=== PATIENT | female | born 1985 | race Hispanic/Latino ===

== ENCOUNTER 2018-12-11 11:16 | Emergency (ER) | payer OTHER, SELFPAY ==
[2018-12-11 14:13] LABS: Urine Bacteria <20 /HPF (<20); Urine RBC NONE SEEN /HPF (NONE SEEN)
[2018-12-11] MEDS ORDERED: NA CHLORIDE 0.9% 1,000 ML ONE (14:13)
[2018-12-11 14:14] LABS: Urine Culture Reflex Order NOT NEEDED
[2018-12-11 14:18] LABS: Urine Blood NEGATIVE (NEG); Urine Glucose NEGATIVE (NEG); Urine Protein NEGATIVE (NEG); Urine Specific Gravity <1.005 (1.005-1.030)
[2018-12-11 14:38] LABS: Absolute Lymphocytes (CBC) 2.7 K/uL (0.7-4.9); Absolute Monocytes 0.5 K/uL (0.1-1.3); Basophils % 0.6 % (0-1.3); Eosinophils % 6.6 % (0-4.4); Hematocrit 39.5 % (36.0-45.0); Lymphocytes % 27.3 % (15.3-44.8); MPV 8.5 fL (7.6-11.3); Monocytes % 4.7 % (3.3-12.3); RBC Red Blood Cell Count 4.38 M/uL (3.86-4.86)
--- NOTE | 2018-12-11 14:42 | RAD REPORT ---
EXAM DESCRIPTION: US - Abdomen Exam Limited - 12/11/2018 2:30 pm CLINICAL HISTORY: ABD PAIN COMPARISON: No comparisons FINDINGS: The gallbladder demonstrates multiple shadowing gallstones. No pericholecystic fluid or ga llbladder wall thickening. The common bile duct is normal measuring 2 mm. The liver demonstrates no findings of intrahepatic biliary dilatation. IMPRESSION: Cholelithiasis.
[2018-12-11 14:49] LABS: ALT/SGPT 29 U/L (12-78); AST/SGOT 13 U/L (15-37); Alkaline Phosphatase 50 U/L (45-117); BUN Blood Urea Nitrogen 12 mg/dL (7-18); Bicarbonate 29 mmol/L (21-32); Bilirubin Direct < 0.1 mg/dL (0-0.2); Bilirubin Total 0.3 mg/dL (0.2-1.0); Glucose Level 80 mg/dL (74-106); Lipase 250 U/L (73-393); Potassium 3.7 mmol/L (3.5-5.1); Sodium Level 140 mmol/L (136-145)
--- NOTE | 2018-12-11 16:41 | ER ---
Nurse's Notes [facility] Name: Vero Torres Age: 33 yrs Sex: Female : 1985 Arrival Date: 12/11/2018 Time: 11:22 Bed 24 Private MD: None, None Diagnosis: Eosinophilia;Generalized abdominal pain Presentation: 12/11 11:27 Presenting complaint: Patient states: upper abd pain and RLQ pain that radiates to aa5 right flank that began 2-3 months ago. Pt states "I need my gallbladder taken out but I haven't been able to do it and the pain got worse 3 days ago". pt reports nausea, denies vomiting. Transition of care: patient was not received from another setting of care. Onset of symptoms was September 2018. Risk Assessment: Do you want to hurt yourself or someone else? Patient reports no desire to harm self or others. Initial Sepsis Screen: Does the patient meet any 2 criteria? No. Patient's initial sepsis screen is negative. Does the patient have a suspected source of infection? No. Patient's initial sepsis screen is negative. Care prior to arrival: None. 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 - Social history:: Smoking status: Patient uses tobacco products, 3 cigarettes a day . - Ebola Screening: : No symptoms or risks identified at this time. Screenin:00 Abuse screen: Denies threats or abuse. Denies injuries from another. Nutritional ca1 screening: No deficits noted. Tuberculosis screening: No symptoms or risk factors identified. Fall Risk None identified. Assessment: 13:00 General: Appears in no apparent distress. comfortable, Behavior is calm, cooperative, ca1 appropriate for age. Pain: Complains of pain in abdomen Pain radiates to back Pain currently is 9 out of 10 on a pain scale. Pain began months ago but worst today Is episodic. Neuro: Level of Consciousness is awake, alert, obeys commands, Oriented to person, place, time, situation. Cardiovascular: Heart tones S1 S2 present Capillary refill < 3 seconds Patient's skin is warm and dry. Respiratory: Airway is patent Respiratory effort is even, unlabored, Respiratory pattern is regular, symmetrical. GI: Abdomen is flat, non-distended, Bowel sounds present X 4 quads. Abd is soft X 4 quads Abdomen is tender to palpation in right upper quadrant and left upper quadrant Reports constipation, nausea, vomiting. : No deficits noted. No signs and/or symptoms were reported regarding the genitourinary system. EENT: No deficits noted. No signs and/or symptoms were reported regarding the EENT system. Derm: Skin is intact, is healthy with good turgor, Skin is pink, warm \\T\\ dry. Musculoskeletal: Circulation, motion, and sensation intact. Capillary refill < 3 seconds. 14:00 Reassessment: Patient appears in no apparent distress at this time. Patient and/or ca1 family updated on plan of care and expected duration. Pain level reassessed. Patient is alert, oriented x 3, equal unlabored respirations, skin warm/dry/pink. 14:18 Reassessment: Pt to US. ca1 14:33 Reassessment: Pt back from US. ca1 15:16 Reassessment: Patient appears in no apparent distress at this time. Patient and/or ca1 family updated on plan of care and expected duration. Pain level reassessed. Patient is alert, oriented x 3, equal unlabored respirations, skin warm/dry/pink. 16:03 Reassessment: Patient appears in no apparent distress at this time. Patient and/or ca1 family updated on plan of care and expected duration. Pain level reassessed. Patient is alert, oriented x 3, equal unlabored respirations, skin warm/dry/pink. 17:00 Reassessment: Patient appears in no apparent distress at this time. Patient is alert, ca1 oriented x 3, equal unlabored respirations, skin warm/dry/pink. Vital Signs: 11:29 BP 106 / 69; Pulse 72; Resp 16 S; Temp 97.7(TE); Pulse Ox 99% on R/A; Weight 81.65 kg aa5 (R); Height 5 ft. 3 in. (160.02 cm) (R); Pain 10/10; 13:00 BP 92 / 63; Pulse 63; Resp 19; Pulse Ox 99% on R/A; Pain 9/10; ca1 14:00 BP 96 / 77; Pulse 57; Resp 19; Pulse Ox 100% on R/A; ca1 15:00 BP 103 / 65; Pulse 57; Resp 19; Pulse Ox 100% on R/A; ca1 16:03 BP 98 / 55; Pulse 63; Resp 18; Pulse Ox 100% on R/A; ca1 17:00 BP 93 / 72; Pulse 60; Resp 19; Pulse Ox 100% on R/A; ca1 11:29 Body Mass Index 31.89 (81.65 kg, 160.02 cm) aa5 ED Course: 11:22 Patient arrived in ED. mr 11:22 None, None is Private Physician. mr 11:27 Arm band placed on. aa5 11:27 Patient placed in waiting room, Patient notified of wait time. aa5 11:29 Triage completed. aa5 11:50 Felicia Payan FNP-C [facility]. snw 11:50 Sudhakar Joe MD is Attending Physician. snw 12:52 Ernestina Talbot, VERNON is Primary Nurse. ca1 13:00 Patient has correct armband on for positive identification. Placed in gown. Bed in low ca1 position. Call light in reach. Side rails up X 1. Pulse ox on. NIBP on. Warm blanket given. 14:15 No provider procedures requiring assistance completed. Inserted saline lock: 20 gauge ca1 in left antecubital area, using aseptic technique. Blood collected. 14:30 US Abdomen Limited In Process Unspecified. EDMS 17:14 IV discontinued, intact, bleeding controlled, No redness/swelling at site. Pressure ca1 dressing applied. Administered Medications: 06:58 Drug: Bentyl 20 mg Route: PO; ca1 17:13 Follow up: Response: Medication administered at discharge. ca1 14:15 Drug: NS 0.9% 1000 ml Route: IV; Rate: 75 ml/hr; Site: right antecubital; ca1 17:12 Follow up: IV Status: Order to discontinue infusion ca1 Outcome: 16:41 Discharge ordered by . snw 17:14 Discharged to home ambulatory. ca1 17:14 Condition: stable 17:14 Discharge instructions given to patient, Instructed on discharge instructions, follow up and referral plans. medication usage, Demonstrated understanding of instructions, follow-up care, medications, Prescriptions given X 1. 17:15 Patient left the ED. ca1 Signatures: Dispatcher [employer] EDMS Felicia Payan, HUMAN RESOURCES REPRESENTATIVE-C HUMAN RESOURCES REPRESENTATIVE-Csnw Shre Kait mr Gregg, Leesa, RN RN aa5 Ernestina Talbot RN RN ca1
--- NOTE | 2018-12-11 16:41 | EDPHYS ---
Physician Documentation [facility] Name: Vero Torres Age: 33 yrs Sex: Female : 1985 Arrival Date: 12/11/2018 Time: 11:22 Bed 24 Private MD: None, None ED Physician Sudhakar Joe HPI: 12/11 14:44 This 33 yrs old Female presents to ER via Ambulatory with complaints of snw Abdominal Pain, Back Pain. 14:44 The patient presents with abdominal pain in the upper abdomen, in the lower abdomen, snw with radiation around to right lower/mid back. Onset: The symptoms/episode began/occurred gradually, 3 day(s) ago, and became worse and became persistent. The symptoms radiate to the right flank. Associated signs and symptoms: Pertinent positives: nausea, Pertinent negatives: fever. The symptoms are described as achy. Modifying factors: The symptoms are alleviated by nothing, the symptoms are aggravated by movement, pressure. Severity of pain: At its worst the pain was moderate in the emergency department the pain is unchanged. It is unknown whether or not the patient has had similar symptoms in the past. It is unknown whether or not the patient has recently seen a physician. pt states she usually goes to [place] for healthcare, has been told her gallbladder needs removing. 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 - Social history:: Smoking status: Patient uses tobacco products, 3 cigarettes a day . - Ebola Screening: : No symptoms or risks identified at this time. ROS: 14:43 Constitutional: Negative for fever, chills, and weight loss, Eyes: Negative for injury, snw pain, redness, and discharge, ENT: Negative for injury, pain, and discharge, Neck: Negative for injury, pain, and swelling, Cardiovascular: Negative for chest pain, palpitations, and edema, Respiratory: Negative for shortness of breath, cough, wheezing, and pleuritic chest pain, : Negative for injury, bleeding, discharge, and swelling, MS/Extremity: Negative for injury and deformity, Skin: Negative for injury, rash, and discoloration, Neuro: Negative for headache, weakness, numbness, tingling, and seizure. 14:43 Abdomen/GI: Positive for abdominal pain, nausea. 14:43 Back: Positive for flank pain, on the right, radiated pain. Exam: 14:42 Constitutional: This is a well developed, well nourished patient who is awake, alert, snw and in no acute distress. Head/Face: Normocephalic, atraumatic. Eyes: Pupils equal round and reactive to light, extra-ocular motions intact. Lids and lashes normal. Conjunctiva and sclera are non-icteric and not injected. Cornea within normal limits. Periorbital areas with no swelling, redness, or edema. ENT: Nares patent. No nasal discharge, no septal abnormalities noted. Tympanic membranes are normal and external auditory canals are clear. Oropharynx with no redness, swelling, or masses, exudates, or evidence of obstruction, uvula midline. Mucous membranes moist. Neck: Trachea midline, no thyromegaly or masses palpated, and no cervical lymphadenopathy. Supple, full range of motion without nuchal rigidity, or vertebral point tenderness. No Meningismus. Chest/axilla: Normal chest wall appearance and motion. Nontender with no deformity. No lesions are appreciated. Cardiovascular: Regular rate and rhythm with a normal S1 and S2. No gallops, murmurs, or rubs. Normal PMI, no JVD. No pulse deficits. Respiratory: Lungs have equal breath sounds bilaterally, clear to auscultation and percussion. No rales, rhonchi or wheezes noted. No increased work of breathing, no retractions or nasal flaring. Back: No spinal tenderness. No costovertebral tenderness. Full range of motion. Skin: Warm, dry with normal turgor. Normal color with no rashes, no lesions, and no evidence of cellulitis. MS/ Extremity: Pulses equal, no cyanosis. Neurovascular intact. Full, normal range of motion. Neuro: Awake and alert, GCS 15, oriented to person, place, time, and situation. Cranial nerves II-XII grossly intact. Motor strength 5/5 in all extremities. Sensory grossly intact. Cerebellar exam normal. Normal gait. Psych: Awake, alert, with orientation to person, place and time. Behavior, mood, and affect are within normal limits. 14:42 Abdomen/GI: Inspection: obese Bowel sounds: normal, Palpation: moderate abdominal tenderness, in the umbilical area and suprapubic area. Vital Signs: 11:29 BP 106 / 69; Pulse 72; Resp 16 S; Temp 97.7(TE); Pulse Ox 99% on R/A; Weight 81.65 kg aa5 (R); Height 5 ft. 3 in. (160.02 cm) (R); Pain 10/10; 13:00 BP 92 / 63; Pulse 63; Resp 19; Pulse Ox 99% on R/A; Pain 9/10; ca1 14:00 BP 96 / 77; Pulse 57; Resp 19; Pulse Ox 100% on R/A; ca1 15:00 BP 103 / 65; Pulse 57; Resp 19; Pulse Ox 100% on R/A; ca1 16:03 BP 98 / 55; Pulse 63; Resp 18; Pulse Ox 100% on R/A; ca1 17:00 BP 93 / 72; Pulse 60; Resp 19; Pulse Ox 100% on R/A; ca1 11:29 Body Mass Index 31.89 (81.65 kg, 160.02 cm) aa5 MDM: 13:45 Patient medically screened. snw 16:42 Data reviewed: vital signs, nurses notes. Data interpreted: Pulse oximetry: on room air snw is 100 %. Interpretation: normal. Counseling: I had a detailed discussion with the patient and/or guardian regarding: the historical points, exam findings, and any diagnostic results supporting the discharge/admit diagnosis, lab results, the need for outpatient follow up, to return to the emergency department if symptoms worsen or persist or if there are any questions or concerns that arise at home. Special discussion: Based on the history and exam findings, there is no indication for further emergent testing or inpatient evaluation. I discussed with the patient/guardian the need to see the cracking still operator for further evaluation of the symptoms. I discussed with the patient/guardian the need to see the primary care provider for further evaluation of the symptoms. ED course: spoke to pt re: parasites and eosinophilia, recent [place] travel. F/u and return prn fever, diarrhea, blood in stools. 12/11 11:49 Order name: Urine Culture snw 12/11 11:49 Order name: Urine Microscopic Only; Complete Time: 14:16 snw 12/11 13:43 Order name: Urine Dipstick--Ancillary (enter results); Complete Time: 14:20 bd 12/11 13:54 Order name: Basic Metabolic Panel; Complete Time: 14:55 snw 12/11 13:54 Order name: CBC with Diff; Complete Time: 14:58 snw 12/11 11:49 Order name: Urine Test (obtain specimen); Complete Time: 12:53 snw 12/11 13:54 Order name: Creatinine for Radiology; Complete Time: 14:55 snw 12/11 13:54 Order name: Hepatic Function; Complete Time: 14:55 snw 12/11 13:54 Order name: Lipase; Complete Time: 14:55 snw 12/11 14:08 Order name: US Abdomen Limited; Complete Time: 14:45 snw 12/11 14:18 Order name: Test, Serum bd 12/11 11:49 Order name: Urine Dipstick-Ancillary (obtain specimen); Complete Time: 12:53 snw 12/11 13:54 Order name: IV Saline Lock; Complete Time: 14:19 snw 12/11 13:54 Order name: Labs collected and sent; Complete Time: 14:19 snw Administered Medications: 06:58 Drug: Bentyl 20 mg Route: PO; ca1 17:13 Follow up: Response: Medication administered at discharge. ca1 14:15 Drug: NS 0.9% 1000 ml Route: IV; Rate: 75 ml/hr; Site: right antecubital; ca1 17:12 Follow up: IV Status: Order to discontinue infusion ca1 Disposition: 17:20 Co-signature as Attending Physician, Sudhakar Joe MD. rn Disposition: 12/11/18 16:41 Discharged to Home. Impression: Eosinophilia, Generalized abdominal pain. - Condition is Stable. - Discharge Instructions: Abdominal Pain, Adult. - Prescriptions for Bentyl 20 mg Oral Tablet - take 1 tablet by ORAL route every 6 hours As needed; 20 tablet. - Work release form, Medication Reconciliation Form, Thank You Letter, Antibiotic Education, Prescription Opioid Use form. - Follow up: Emergency Department; When: As needed; Reason: Worsening of condition. Follow up: Private Physician; When: 2 - 3 days; Reason: Recheck today's complaints, Continuance of care, Re-evaluation by your physician. Signatures: Dispatcher [facility] EDFelicia Henriquez FNP-C RETOUCHER-Csnw Sudhakar Joe MD MD rn Leesa Escobedo, RN RN aa5 Ernestina Talbot RN RN ca1 Corrections: (The following items were deleted from the chart) 14:19 13:44 URINE --ANCILLARY+UC.LAB.BRZ ordered. EDMS EDMS 17:15 16:41 12/11/2018 16:41 Discharged to Home. Impression: Eosinophilia; Generalized ca1 abdominal pain. Condition is Stable. Forms are Medication Reconciliation Form, Thank You Letter, Antibiotic Education, Prescription Opioid Use. Follow up: Emergency Department; When: As needed; Reason: Worsening of condition. Follow up: Private Physician; When: 2 - 3 days; Reason: Recheck today's complaints, Continuance of care, Re-evaluation by your physician. snw
[2018-12-11] MEDS ORDERED: DICYCLOMINE HCL 10 MG CAP ONE (17:19)
== END 2018-12-11 17:15 | disposition home or self-care (01) ==
LOC: ER 11:16
DX: D72.1 Eosinophilia (principal); R10.10 Upper abdominal pain, unspecified; R10.30 Lower abdominal pain, unspecified; F17.210 Nicotine dependence, cigarettes, uncomplicated
CPT/HCPCS: 36415; 76705; 80048; 80076; 81003; 81015; 83690; 84703; 85025; 87086; 87088; 96360; 96361; 99284; J7030

== ENCOUNTER 2019-04-06 19:23 | Emergency (ER) | payer OTHER ==
[2019-04-06 20:04] LABS: Absolute Lymphocytes (CBC) 3.2 K/uL (0.7-4.9); Basophils % 0.6 % (0-1.3); Hematocrit 39.5 % (36.0-45.0); MPV 8.3 fL (7.6-11.3); RBC Red Blood Cell Count 4.35 M/uL (3.86-4.86)
[2019-04-06 20:24] LABS: Potassium 3.6 mmol/L (3.5-5.1)
[2019-04-06 20:56] LABS: Urine Specific Gravity 1.015 (1.005-1.030)
[2019-04-06 20:56] LABS: Urine Glucose NEGATIVE (NEG); Urine Specific Gravity 1.015 (1.005-1.030)
[2019-04-06 20:57] LABS: Urine Blood 3+ (NEG); Urine Protein NEGATIVE (NEG)
--- NOTE | 2019-04-06 21:14 | ER ---
Nurse's Notes [facility] Name: Vero Torres Age: 33 yrs Sex: Female : 1985 Arrival Date: 04/06/2019 Time: 19:26 Bed 30 Private MD: Diagnosis: Threatened Presentation: 04/06 19:33 Presenting complaint: Patient states: right lower abd pain intermittent X1 week. pt c/o ak1 dark brown blood vaginal bleeding X2 weeks with bright red blood today. pt seen in [place] for . Transition of care: patient was not received from another setting of care. Onset of symptoms is unknown. Risk Assessment: Do you want to hurt yourself or someone else? Patient reports no desire to harm self or others. Initial Sepsis Screen: Does the patient meet any 2 criteria? No. Patient's initial sepsis screen is negative. Does the patient have a suspected source of infection? No. Patient's initial sepsis screen is negative. Care prior to arrival: None. 19:33 Method Of Arrival: Ambulatory ak1 19:33 Acuity: RED 3 ak1 Triage Assessment: 19:34 General: Appears in no apparent distress. Behavior is calm, cooperative. 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 - Social history:: Smoking status: Patient/guardian denies using tobacco. - Ebola Screening: : No symptoms or risks identified at this time. Screenin:45 Abuse screen: Denies threats or abuse. Denies injuries from another. Nutritional ca1 screening: No deficits noted. Tuberculosis screening: No symptoms or risk factors identified. Fall Risk IV access (20 points). Assessment: 19:45 General: Appears in no apparent distress. comfortable, Behavior is calm, cooperative, ca1 appropriate for age. Pain: Complains of pain in right lower quadrant Pain radiates to right low back Pain currently is 8 out of 10 on a pain scale. Quality of pain is described as sharp, Pain began 2 weeks ago but comes about 2 days on a week. But today has been worse with bright red vaginal bleeding. Neuro: Level of Consciousness is awake, alert, obeys commands, Oriented to person, place, time, situation, Appropriate for age. Cardiovascular: Heart tones S1 S2 present Capillary refill < 3 seconds Patient's skin is warm and dry. Respiratory: Airway is patent Respiratory effort is even, unlabored, Respiratory pattern is regular, symmetrical, Breath sounds are clear bilaterally. GI: Abdomen is round non-distended, Bowel sounds present X 4 quads. Abd is soft X 4 quads Abdomen is tender to palpation in right lower quadrant Reports nausea. : Urine is clear, Reports vaginal bleeding that is bright red, light flow, since 2 days ago. But first bright red blood vaginal bleed was on Sunday but went away. 2 days ago started to come back. 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 EENT: No deficits noted. No signs and/or symptoms were reported regarding the EENT system. Derm: Skin is intact, is healthy with good turgor, Skin is pink, warm \T\ dry. Musculoskeletal: Circulation, motion, and sensation intact. Capillary refill < 3 seconds, Range of motion: intact in all extremities. 21:08 Reassessment: Patient appears in no apparent distress at this time. Patient and/or ca1 family updated on plan of care and expected duration. Pain level reassessed. Patient is alert, oriented x 3, equal unlabored respirations, skin warm/dry/pink. Vital Signs: 19:32 BP 114 / 65; Pulse 87; Resp 16; Temp 98.1; Pulse Ox 99% on R/A; Weight 88.9 kg (R); ak1 Height 5 ft. 3 in. (160.02 cm); Pain 6/10; 20:13 BP 99 / 62; Pulse 81; Resp 16 S; Pulse Ox 100% on R/A; ca1 21:08 BP 99 / 68; Pulse 77; Resp 17 S; Pulse Ox 99% on R/A; ca1 19:32 Body Mass Index 34.72 (88.90 kg, 160.02 cm) ak1 ED Course: 19:26 Patient arrived in ED. es 19:32 Arm band placed on Patient placed in an exam room, on a stretcher, Patient notified of ak1 wait time. 19:34 Triage completed. ak1 19:37 Srinivas Red PA is PHCP. [facility] 19:37 Cordell Arreguin MD is Attending Physician. [facility] 19:45 Patient has correct armband on for positive identification. Placed in gown. Bed in low ca1 position. Call light in reach. Side rails up X 1. Pulse ox on. NIBP on. Warm blanket given. 19:45 Inserted saline lock: 20 gauge in right antecubital area, using aseptic technique. ca1 Blood collected. 19:56 Ernestina Talbot, RN is Primary Nurse. ca1 20:32 Transvaginal OB In Process Unspecified. EDMS 21:13 Josue Matamoros MD is Referral Physician. [facility] 21:22 No provider procedures requiring assistance completed. IV discontinued, intact, la1 bleeding controlled, No redness/swelling at site. Pressure dressing applied. Administered Medications: No medications were administered Outcome: 21:13 Discharge ordered by . [facility] 21:22 Discharged to home ambulatory. la1 21:22 Condition: stable 21:22 Discharge instructions given to patient, Instructed on discharge instructions, follow up and referral plans. medication usage, Demonstrated understanding of instructions, follow-up care. 21:22 Patient left the ED. la1 Signatures: Dispatcher [employer] EDKS Srinivas Red PA PA jmm Salyer, Edna es Attema, Lee, RN RN la1 Puja Puri RN RN ak1 Ernestina Talbot, VERNON RN ca1 Corrections: (The following items were deleted from the chart) 20:04 19:45 : Urine is clear, ca1 ca1
--- NOTE | 2019-04-06 21:15 | EDPHYS ---
Physician Documentation [facility] Name: Vero Torres Age: 33 yrs Sex: Female : 1985 Arrival Date: 04/06/2019 Time: 19:26 Bed 30 Private MD: ED Physician Cordell Arreguin HPI: 04/06 19:41 This 33 yrs old Female presents to ER via Ambulatory with complaints of jmm Vaginal Bleeding, + Preg <12wks, Abdominal Pain. 19:41 The patient presents to the emergency department with vaginal bleeding. jmm course: care: none. This is a 33 year old female with no chronic medical conditions that presents to the ED with complaints of pelvic cramping and vaginal bleeding for the past week. Patient denies fever. Was evaluated in [place] for negative US and positive results. . 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 - Social history:: Smoking status: Patient/guardian denies using tobacco. - Ebola Screening: : No symptoms or risks identified at this time. ROS: 21:22 Constitutional: Negative for fever, chills, and weight loss, Cardiovascular: Negative jmm for chest pain, palpitations, and edema, Respiratory: Negative for shortness of breath, cough, wheezing, and pleuritic chest pain. 21:22 : Positive for vaginal bleeding. 21:22 All other systems are negative. Exam: 21:22 Constitutional: This is a well developed, well nourished patient who is awake, alert, jmm and in no acute distress. Head/Face: atraumatic. Eyes: EOMI, no conjunctival erythema appreciated ENT: Moist Mucus Membranes Neck: Trachea midline, Supple Chest/axilla: Normal chest wall appearance and motion. Cardiovascular: Regular rate and rhythm. No edema appreciated Respiratory: Normal respirations, no respiratory distress appreciated Abdomen/GI: Non distended, soft Back: Normal ROM Skin: General appearance color normal MS/ Extremity: Moves all extremities, no obvious deformities appreciated, no edema noted to the lower extremities Neuro: Awake and alert, normal gait Psych: Behavior is normal, Mood is normal, Patient is cooperative and pleasant Vital Signs: 19:32 BP 114 / 65; Pulse 87; Resp 16; Temp 98.1; Pulse Ox 99% on R/A; Weight 88.9 kg (R); ak1 Height 5 ft. 3 in. (160.02 cm); Pain 6/10; 20:13 BP 99 / 62; Pulse 81; Resp 16 S; Pulse Ox 100% on R/A; ca1 21:08 BP 99 / 68; Pulse 77; Resp 17 S; Pulse Ox 99% on R/A; ca1 19:32 Body Mass Index 34.72 (88.90 kg, 160.02 cm) ak1 MDM: 19:41 Patient medically screened. bradley 21:13 Data reviewed: vital signs, nurses notes. Counseling: I had a detailed discussion with bradley the patient and/or guardian regarding: the historical points, exam findings, and any diagnostic results supporting the discharge/admit diagnosis, the need for outpatient follow up, to return to the emergency department if symptoms worsen or persist or if there are any questions or concerns that arise at home. 04/06 19:46 Order name: Quantitative Hcg; Complete Time: 20:34 [facility] 04/06 19:46 Order name: Abo/rh Typing; Complete Time: 20:56 [facility] 04/06 19:46 Order name: Basic Metabolic Panel; Complete Time: 20:34 [facility] 04/06 19:46 Order name: CBC with Diff; Complete Time: 20:20 [facility] 04/06 19:46 Order name: Urine Test (obtain specimen); Complete Time: 19:59 [facility] 04/06 19:46 Order name: IV Saline Lock; Complete Time: 19:59 [facility] 04/06 19:46 Order name: Labs collected and sent; Complete Time: 19:59 [facility] 04/06 19:46 Order name: NPO; Complete Time: 19:59 [facility] 04/06 20:08 Order name: Urine --Ancillary (enter results); Complete Time: 21:02 [facility] 04/06 20:10 Order name: Urine Dipstick--Ancillary (enter results); Complete Time: 21:02 2 04/06 20:32 Order name: Transvaginal OB EDIN 04/06 19:46 Order name: Urine Dipstick-Ancillary (obtain specimen); Complete Time: 19:59 [facility] Administered Medications: No medications were administered Disposition: 04/07 06:32 Co-signature as Attending Physician, Cordell Arreguin MD I agree with the assessment and tw4 plan of care. Disposition: 04/06/19 21:13 Discharged to Home. Impression: Threatened . - Condition is Stable. - Discharge Instructions: Threatened Miscarriage. - Medication Reconciliation Form, Thank You Letter, Antibiotic Education, Prescription Opioid Use, Work release form form. - Follow up: Josue Matamoros MD; When: 1 - 2 days; Reason: Recheck today's complaints, Continuance of care, Repeat Beta-HCG (48 Hours), Re-evaluation by your physician. Signatures: Dis[facility] Srinivas Red PA PA [facility] Levi Cooper RN RN la1 Puja Puri RN RN ak1 Cordell Arreguin MD MD tw4 Corrections: (The following items were deleted from the chart) 04/06 20:14 20:04 URINE --ANCILLARY+UC.LAB.BRZ ordered. [facility] 20:25 20:04 URINE DIPSTICK--ANCILLARY+U.LAB.BRZ ordered. [facility] EDIN 20:25 20:20 URINE DIPSTICK--ANCILLARY+U.LAB.BRZ reviewed. [facility] EDIN 20:32 19:47 1st Trimest Single 1st Fetus+US.RAD.BRZ ordered. [facility] ED[facility] 21:22 21:13 04/06/2019 21:13 Discharged to Home. Impression: Threatened . Condition la1 is Stable. Forms are Medication Reconciliation Form, Thank You Letter, Antibiotic Education, Prescription Opioid Use. Follow up: Josue Matamoros; When: 1 - 2 days; Reason: Recheck today's complaints, Continuance of care, Repeat Beta-HCG (48 Hours), Re-evaluation by your physician. [facility]
--- NOTE | 2019-04-07 09:09 | RAD REPORT ---
EXAM DESCRIPTION: US - Transvaginal OB - 04/06/2019 8:32 pm CLINICAL HISTORY: Pelvic pain, vaginal bleeding, beta HCG 594 COMPARISON: None. TECHNIQUE: Endovaginal sonography performed. FINDINGS: Both ovaries are identified and contain small cysts or follicles. Doppler evaluation shows normal blood flow in the ovarian stroma. There is no adnexal mass seen suspicious for an ectopic pre gnancy. No blood or fluid in the cul de sac. Normal size uterus shows a thin endometrial cavity. No gestational sac or sac remnant present. No hem atoma, mass or other suspicious finding. Moderate-sized nabothian cyst present. IMPRESSION: Negative pelvic ultrasound. No evidence for intrauterine or extra uterine .
== END 2019-04-06 21:22 | disposition home or self-care (01) ==
LOC: ER 19:23
DX: O20.0 Threatened abortion (principal); Z3A.08 8 weeks gestation of pregnancy
CPT/HCPCS: 36415; 76817; 80048; 81003; 81025; 84702; 85025; 86900; 86901; 99284

== ENCOUNTER 2019-04-09 13:20 | Emergency (ER) | payer OTHER ==
--- NOTE | 2019-04-09 15:12 | RAD REPORT ---
EXAM DESCRIPTION: US - Transvaginal OB - 04/09/2019 2:46 pm CLINICAL HISTORY: ABD CRAMPING, COMPARISON: Transvaginal OB dated 04/06/2019 FINDINGS: The uterus is normal in size, shape and echotexture. Endometrium measures 5 mm. No IUP fin ding is evident. Both ovaries are normal in size, shape and echotexture. Normal blood flow is seen to both ovaries. No adnexal mass clearly seen. IMPRESSION: No IUP is identified. In the setting of an elevated HCG level, the findings would indica te of unknown location. Advise serial HCG level measurement and follow-up pelvic sonography in 7-10 days.
--- NOTE | 2019-04-09 15:23 | ER ---
Nurse's Notes [facility] Name: Vero Torres Age: 33 yrs Sex: Female : 1985 Arrival Date: 04/09/2019 Time: 13:24 Bed 18 Private MD: None, None Diagnosis: Suspected spontaneous Presentation: 04/09 13:29 Presenting complaint: Lower abdominal pain since this morning. Seen in ED 3 days ago hb for threatened . Denies bleeding at this time. Transition of care: patient was not received from another setting of care. Onset of symptoms was April 09, 2019. Risk Assessment: Do you want to hurt yourself or someone else? Patient reports no desire to harm self or others. Initial Sepsis Screen: Does the patient meet any 2 criteria? No. Patient's initial sepsis screen is negative. Does the patient have a suspected source of infection? No. Patient's initial sepsis screen is negative. Care prior to arrival: None. 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 - Social history:: Smoking status: Patient/guardian denies using tobacco. - Ebola Screening: : No symptoms or risks identified at this time. - Family history:: not pertinent. - Hospitalizations: : No recent hospitalization is reported. Screenin:03 Abuse screen: Denies threats or abuse. Denies injuries from another. Nutritional jl7 screening: No deficits noted. Tuberculosis screening: No symptoms or risk factors identified. Fall Risk None identified. Assessment: 14:03 General: Appears in no apparent distress. uncomfortable, Behavior is calm, cooperative, jl7 appropriate for age, crying. Pain: Complains of pain in suprapubic area Pain does not radiate. Pain currently is 8 out of 10 on a pain scale. Quality of pain is described as crampy, Pain began 2-3 days ago. Is continuous. Neuro: Level of Consciousness is awake, alert, obeys commands, Oriented to person, place, time, situation. Cardiovascular: Patient's skin is warm and dry. Respiratory: Airway is patent Respiratory effort is even, unlabored, Respiratory pattern is regular, symmetrical. GI: Abdomen is round non-distended, Bowel sounds present X 4 quads. Abd is soft and non tender X 4 quads. : Reports cramping, Denies vaginal bleeding. EENT: No signs and/or symptoms were reported regarding the EENT system. Derm: Skin is pink, warm \T\ dry. 15:00 Reassessment: Patient appears in no apparent distress at this time. No changes from jl7 previously documented assessment. Patient and/or family updated on plan of care and expected duration. Pain level reassessed. Patient is alert, oriented x 3, equal unlabored respirations, skin warm/dry/pink. Vital Signs: 13:30 BP 117 / 68; Pulse 67; Resp 16; Temp 97.4; Pulse Ox 100% on R/A; Weight 88.9 kg; Height hb 5 ft. 3 in. (160.02 cm); Pain 10/10; 13:30 Body Mass Index 34.72 (88.90 kg, 160.02 cm) hb ED Course: 13:24 Patient arrived in ED. dp 13:25 None, None is Private Physician. dp 13:30 Triage completed. hb 13:31 Arm band placed on. hb 13:41 Yadira Marcos, VERNON is Primary Nurse. jl7 13:41 Sudhakar Joe MD is Attending Physician. rn 14:03 Patient has correct armband on for positive identification. Placed in gown. Bed in low jl7 position. Call light in reach. Side rails up X 1. Warm blanket given. 14:03 Initial lab(s) drawn, by me, sent to lab. jl7 14:47 Transvaginal Ob In Process Unspecified. EDMS 15:31 No provider procedures requiring assistance completed. Patient did not have IV access jl7 during this emergency room visit. Administered Medications: No medications were administered Outcome: 15:21 Discharge ordered by . rn 15:31 Discharged to home ambulatory. jl7 15:31 Condition: stable 15:31 Discharge instructions given to patient, family, Instructed on discharge instructions, follow up and referral plans. Demonstrated understanding of instructions, follow-up care. 15:36 Patient left the ED. jl7 Signatures: Dispatcher [employer] Sudhakar Zaman MD MD rn Baxter, Heather, RN RN Yadira Denis RN RN jl7 Marco Walker
--- NOTE | 2019-04-09 15:23 | EDPHYS ---
Physician Documentation [facility] Name: Vero Torres Age: 33 yrs Sex: Female : 1985 Arrival Date: 04/09/2019 Time: 13:24 Bed 18 Private MD: None, None ED Physician Sudhakar Joe HPI: 04/09 13:55 This 33 yrs old Female presents to ER via Ambulatory with complaints of rn Abdominal Pain. 13:55 The patient presents to the emergency department with abdominal pain. course: rn care: none, Ultrasound: the patient had an ultrasound. Previous pregnancies: in previous pregnancies patient has had. The patient has experienced similar episodes in the past. presents with f/u for abdominal cramping, seen here 2 days ago, u/s did not show anything, hcg was low, told to f/u with private OB but came here because cramping is continuing. Denies further vaginal bleeding.. 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 - Social history:: Smoking status: Patient/guardian denies using tobacco. - Ebola Screening: : No symptoms or risks identified at this time. - Family history:: not pertinent. - Hospitalizations: : No recent hospitalization is reported. ROS: 13:55 Constitutional: Negative for fever, chills, and weight loss, Cardiovascular: Negative rn for chest pain, palpitations, and edema, Respiratory: Negative for shortness of breath, cough, wheezing, and pleuritic chest pain, Abdomen/GI: Negative for nausea, vomiting, diarrhea, and constipation, : Negative for injury, or vaginal bleeding MS/Extremity: Negative for injury and deformity, Skin: Negative for injury, rash, and discoloration, Neuro: Negative for headache, weakness, numbness, tingling, and seizure. Exam: 13:55 Constitutional: This is a well developed, well nourished patient who is awake, alert, rn and in no acute distress. Head/Face: Normocephalic, atraumatic. Eyes: Normal conjunctivae ENT: MMM Abdomen/GI: soft, mild suprapubic tenderness, no rebound or peritoneal signs Skin: Warm, dry with normal turgor. Normal color with no rashes, no lesions, and no evidence of cellulitis. MS/ Extremity: Pulses equal, no cyanosis. Neurovascular intact. Full, normal range of motion. Equal circumference. Neuro: Awake and alert, GCS 15, oriented to person, place, time, and situation. Cranial nerves II-XII grossly intact. Motor strength 5/5 in all extremities. Sensory grossly intact. Cerebellar exam normal. Normal gait. Vital Signs: 13:30 BP 117 / 68; Pulse 67; Resp 16; Temp 97.4; Pulse Ox 100% on R/A; Weight 88.9 kg; Height hb 5 ft. 3 in. (160.02 cm); Pain 10/10; 13:30 Body Mass Index 34.72 (88.90 kg, 160.02 cm) hb MDM: 13:42 Patient medically screened. rn 15:19 Differential diagnosis: ectopic . Data reviewed: vital signs, nurses notes, bowl turner test result(s), radiologic studies, ultrasound, and as a result, I will discharge patient. Counseling: I had a detailed discussion with the patient and/or guardian regarding: the historical points, exam findings, and any diagnostic results supporting the discharge/admit diagnosis, lab results, radiology results, the need for outpatient follow up, to return to the emergency department if symptoms worsen or persist or if there are any questions or concerns that arise at home. Medical screen evaluation completed. EMTALA emergency medical condition absent. Special discussion: Based on the patient's Hx, exam, and Dx evaluation, there is no indication for emergent surgery or inpatient Tx. It is understood by the patient/guardian that if the Sx's persist or worsen they need to return immediately for re-evaluation. I discussed with the patient/guardian in detail that at this point there is no indication for admission to the hospital. It is understood, however, that if the symptoms persist or worsen the patient needs to return immediately for re-evaluation. Based on the history and exam findings, there is no indication for further emergent testing or inpatient evaluation. I discussed with the patient/guardian the need to see the OB Gyne specialist for further evaluation of the symptoms. ED course: No change in beta hcg, most likely , no findings consistent with ectopic at this point, recommend repeat beta with repeat u/s. Return precautions given and understood. Rh+, no rhogam indicated.. 04/09 13:54 Order name: HCG-Quantitative; Complete Time: 14:34 rn 04/09 13:54 Order name: US Transvaginal Ob; Complete Time: 15:19 rn Administered Medications: No medications were administered Disposition: 04/09/19 15:21 Discharged to Home. Impression: Suspected spontaneous . - Condition is Stable. - Discharge Instructions: Ectopic , Miscarriage. - Medication Reconciliation Form, Thank You Letter, Antibiotic Education, Prescription Opioid Use, Work release form form. - Follow up: Private Physician; When: 48 Hours; Reason: Repeat Beta-HCG (48 Hours). - Problem is new. - Symptoms have improved. Signatures: Dispatcher [employer] EDMS Sudhakar Joe MD MD rn Baxter, Heather, RN RN hb Leal, Jahala, RN RN jl7 Corrections: (The following items were deleted from the chart) 15:36 15:21 04/09/2019 15:21 Discharged to Home. Impression: Suspected spontaneous . jl7 Condition is Stable. Forms are Medication Reconciliation Form, Thank You Letter, Antibiotic Education, Prescription Opioid Use. Follow up: Private Physician; When: 48 Hours; Reason: Repeat Beta-HCG (48 Hours). Problem is new. Symptoms have improved. rn
== END 2019-04-09 15:36 | disposition home or self-care (01) ==
LOC: ER 13:20
DX: O26.899 Other specified pregnancy related conditions, unspecified trimester (principal); R10.9 Unspecified abdominal pain; Z3A.00 Weeks of gestation of pregnancy not specified
CPT/HCPCS: 36415; 76817; 84702

== ENCOUNTER 2019-04-11 21:00 | Emergency (ER) | payer OTHER ==
--- NOTE | 2019-04-11 22:39 | ER ---
Nurse's Notes [facility] Name: Vero Torres Age: 33 yrs Sex: Female : 1985 Arrival Date: 04/11/2019 Time: 21:02 Bed 25 Private MD: Diagnosis: Spontaneous Presentation: 04/11 21:26 Presenting complaint: Patient states: "I was seen here earlier in the week with jd3 abdominal pain and vaginal bleeding. I was told I am currently , but something about the ultrasound didn't find anything. I was told to come back if my pain continued and to have my HCG checked.". Transition of care: patient was not received from another setting of care. Onset of symptoms was April 07, 2019. Risk Assessment: Do you want to hurt yourself or someone else? Patient reports no desire to harm self or others. Initial Sepsis Screen: Does the patient meet any 2 criteria? No. Patient's initial sepsis screen is negative. Does the patient have a suspected source of infection? No. Patient's initial sepsis screen is negative. Care prior to arrival: None. 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 - Social history:: Smoking status: Patient/guardian denies using tobacco. - Ebola Screening: : Patient negative for fever greater than or equal to 101.5 degrees Fahrenheit, and additional compatible Ebola Virus Disease symptoms. Screenin:31 Abuse screen: Denies threats or abuse. Denies injuries from another. Nutritional ca1 screening: No deficits noted. Tuberculosis screening: No symptoms or risk factors identified. Fall Risk None identified. Assessment: 21:31 General: Appears in no apparent distress. comfortable, Behavior is calm, cooperative, ca1 appropriate for age. Pain: Complains of pain in suprapubic area Pain radiates to back and pelvis Pain currently is 6 out of 10 on a pain scale. Pain: Quality of pain is described as sharp, Pain began a week ago Is intermittent. Neuro: Level of Consciousness is awake, alert, obeys commands, Oriented to person, place, time, situation. Cardiovascular: Heart tones S1 S2 present Capillary refill < 3 seconds Patient's skin is warm and dry. Pulses are all present. Respiratory: Airway is patent Respiratory effort is even, unlabored, Respiratory pattern is regular, symmetrical, Breath sounds are clear bilaterally. GI: Abdomen is round non-distended, Bowel sounds present X 4 quads. Abd is soft and non tender X 4 quads. Reports nausea, Patient currently denies vomiting. : Reports vaginal bleeding that is spotty. EENT: No deficits noted. No signs and/or symptoms were reported regarding the EENT system. Derm: Skin is intact, is healthy with good turgor, Skin is pink, warm \\T\\ dry. Musculoskeletal: Circulation, motion, and sensation intact. Capillary refill < 3 seconds, Range of motion: intact in all extremities. 22:45 Reassessment: Patient appears in no apparent distress at this time. Patient and/or ca1 family updated on plan of care and expected duration. Pain level reassessed. Patient is alert, oriented x 3, equal unlabored respirations, skin warm/dry/pink. Vital Signs: 21:29 BP 121 / 66; Pulse 79; Resp 17 S; Temp 98.3(TE); Pulse Ox 99% on R/A; Weight 88.9 kg jd3 (R); Height 5 ft. 3 in. (160.02 cm) (R); Pain 9/10; 22:45 BP 108 / 71; Pulse 81; Resp 16 S; Pulse Ox 100% on R/A; ca1 21:29 Body Mass Index 34.72 (88.90 kg, 160.02 cm) jd3 ED Course: 21:02 Patient arrived in ED. ag3 21:19 Ashley Martinez FNP-C [facility] kb 21:19 Art Jackson MD is Attending Physician. kb 21:26 Ernestina Talbot, VERNON is Primary Nurse. ca1 21:28 Triage completed. jd3 21:30 Arm band placed on. jd3 21:31 Patient has correct armband on for positive identification. Bed in low position. Call ca1 light in reach. Side rails up X 1. Pulse ox on. NIBP on. Warm blanket given. 21:52 Initial lab(s) drawn, by me, sent to lab. ca1 22:45 No provider procedures requiring assistance completed. Patient did not have IV access ca1 during this emergency room visit. Administered Medications: No medications were administered Outcome: 22:38 Discharge ordered by . rubi 22:46 Discharged to home ambulatory, with significant other. ca1 22:46 Condition: stable 22:46 Discharge instructions given to patient, Instructed on discharge instructions, follow up and referral plans. Demonstrated understanding of instructions, follow-up care. 22:47 Patient left the ED. ca1 Signatures: Ashley Martinez, CONCRETE GRINDER OPERATOR-C CONCRETE GRINDER OPERATOR-Lacho Burden RN RN jd3 Narda Strickland ag3 Ernestina Talbot RN RN ca1 Corrections: (The following items were deleted from the chart) 21:23 21:21 Presenting complaint: ildefonso fregoso 21:28 21:21 Presenting complaint: Patient states: ad Presenting complaint: Patient states: ad ildefonso fregoso
--- NOTE | 2019-04-11 22:40 | EDPHYS ---
Physician Documentation [facility] Name: Vero Torres Age: 33 yrs Sex: Female : 1985 Arrival Date: 04/11/2019 Time: 21:02 Bed 25 Private MD: ED Physician Art Jackson HPI: 04/11 22:39 This 33 yrs old Female presents to ER via Ambulatory with complaints of kb Abdominal Pain. 22:40 The patient presents to the emergency department with abdominal pain. course: kb care: none. Associated signs and symptoms: Pertinent positives: abdominal pain. The patient has not experienced similar symptoms in the past. The patient has been recently seen at the [facility] Emergency Department. Pt states she has had lower abd pain since Sunday. Was seen here on Sunday and Sunday with labs and US done both times. States she came back today because she was told she needed to have her hormone retested to see if she was having a miscarriage. . 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 - Social history:: Smoking status: Patient/guardian denies using tobacco. - Ebola Screening: : Patient negative for fever greater than or equal to 101.5 degrees Fahrenheit, and additional compatible Ebola Virus Disease symptoms. ROS: 22:39 Constitutional: Negative for fever, chills, and weight loss, ENT: Negative for injury, kb pain, and discharge, Neck: Negative for injury, pain, and swelling, Cardiovascular: Negative for chest pain, palpitations, and edema, Respiratory: Negative for shortness of breath, cough, wheezing, and pleuritic chest pain, Back: Negative for injury and pain, : Negative for injury, bleeding, discharge, and swelling, MS/Extremity: Negative for injury and deformity, Skin: Negative for injury, rash, and discoloration, Neuro: Negative for headache, weakness, numbness, tingling, and seizure. 22:39 Abdomen/GI: Positive for abdominal pain, Negative for nausea, vomiting, and diarrhea. Exam: 22:39 Constitutional: This is a well developed, well nourished patient who is awake, alert, kb and in no acute distress. Head/Face: Normocephalic, atraumatic. Neck: Trachea midline, no thyromegaly or masses palpated, and no cervical lymphadenopathy. Supple, full range of motion without nuchal rigidity, or vertebral point tenderness. No Meningismus. Chest/axilla: Normal chest wall appearance and motion. Nontender with no deformity. No lesions are appreciated. Cardiovascular: Regular rate and rhythm with a normal S1 and S2. No gallops, murmurs, or rubs. Normal PMI, no JVD. No pulse deficits. Respiratory: Lungs have equal breath sounds bilaterally, clear to auscultation and percussion. No rales, rhonchi or wheezes noted. No increased work of breathing, no retractions or nasal flaring. Back: No spinal tenderness. No costovertebral tenderness. Full range of motion. Skin: Warm, dry with normal turgor. Normal color with no rashes, no lesions, and no evidence of cellulitis. MS/ Extremity: Pulses equal, no cyanosis. Neurovascular intact. Full, normal range of motion. Neuro: Awake and alert, GCS 15, oriented to person, place, time, and situation. Cranial nerves II-XII grossly intact. Motor strength 5/5 in all extremities. Sensory grossly intact. Cerebellar exam normal. Normal gait. 22:39 Abdomen/GI: Inspection: obese Bowel sounds: normal, in all quadrants, Palpation: soft, in all quadrants, mild abdominal tenderness, in the suprapubic area, right lower quadrant and left lower quadrant. Vital Signs: 21:29 BP 121 / 66; Pulse 79; Resp 17 S; Temp 98.3(TE); Pulse Ox 99% on R/A; Weight 88.9 kg jd3 (R); Height 5 ft. 3 in. (160.02 cm) (R); Pain 9/10; 22:45 BP 108 / 71; Pulse 81; Resp 16 S; Pulse Ox 100% on R/A; ca1 21:29 Body Mass Index 34.72 (88.90 kg, 160.02 cm) jd3 MDM: 21:25 Patient medically screened. kb 22:38 Data reviewed: vital signs, nurses notes. Data interpreted: Pulse oximetry: on room air rubi is 99 %. Interpretation: normal. Counseling: I had a detailed discussion with the patient and/or guardian regarding: the historical points, exam findings, and any diagnostic results supporting the discharge/admit diagnosis, lab results, the need for outpatient follow up, an OB/Gyne specialist, to return to the emergency department if symptoms worsen or persist or if there are any questions or concerns that arise at home. 22:41 ED course: Previous records reviewed. US on both visits did not show anything in kb ovaries, tubes or uterus. First quant 594, then 562, now 445. Pt educated on findings and that she needs to follow up with OB. . 04/11 21:35 Order name: HCG-Quantitative; Complete Time: 22:14 kb Administered Medications: No medications were administered Disposition: 04/11/19 22:38 Discharged to Home. Impression: Spontaneous . - Condition is Stable. - Discharge Instructions: Miscarriage, [id number]. - Work release form, Medication Reconciliation Form, Thank You Letter, Antibiotic Education, Prescription Opioid Use form. - Follow up: Emergency Department; When: As needed; Reason: Worsening of condition. Follow up: Private Physician; When: 2 - 3 days; Reason: Recheck today's complaints, Continuance of care, Re-evaluation by your physician. Addendum: 04/14/2019 09:18 Co-signature as Attending Physician, Art Jackson MD I agree with the assessment and c orozco plan of care. Signatures: Dispatcher [employer] EDMS Ashley Martinez, TEA TREE FARMER-C TEA TREE FARMER-Ckb Art Jackson MD MD cha Davies, Jonathon RN RN jd3 Ernestina Talbot RN RN ca1 Corrections: (The following items were deleted from the chart) 04/11 22:47 22:38 04/11/2019 22:38 Discharged to Home. Impression: Spontaneous . Condition ca1 is Stable. Forms are Medication Reconciliation Form, Thank You Letter, Antibiotic Education, Prescription Opioid Use. Follow up: Emergency Department; When: As needed; Reason: Worsening of condition. Follow up: Private Physician; When: 2 - 3 days; Reason: Recheck today's complaints, Continuance of care, Re-evaluation by your physician. kb
== END 2019-04-11 22:47 | disposition home or self-care (01) ==
LOC: ER 21:00
DX: O03.9 Complete or unspecified spontaneous abortion without complication (principal); Z3A.00 Weeks of gestation of pregnancy not specified
CPT/HCPCS: 36415; 84702; 99283